=== PATIENT | female | born 1960 ===

== ENCOUNTER 2017-04-04 07:52 | Outpatient (RCR) | payer BC | END 2017-04-11 | disposition home or self-care (01) | LOC: WCC 07:52 | DX: T86.821 Skin graft (allograft) (autograft) failure (principal); Z90.13 Acquired absence of bilateral breasts and nipples; Z88.2 Allergy status to sulfonamides; Z88.6 Allergy status to analgesic agent; Z90.710 Acquired absence of both cervix and uterus | CPT/HCPCS: G0277; G0463; 99204 ==

== ENCOUNTER 2017-04-12 17:44 | Outpatient (RCR) | payer BC | END 2017-05-12 | disposition home or self-care (01) | LOC: WCC 17:44 | DX: T86.821 Skin graft (allograft) (autograft) failure (principal); Z90.13 Acquired absence of bilateral breasts and nipples; Z88.2 Allergy status to sulfonamides; Z90.710 Acquired absence of both cervix and uterus; Z88.6 Allergy status to analgesic agent; Z88.8 Allergy status to other drugs, medicaments and biological substances | CPT/HCPCS: G0277 ×10 ==